=== PATIENT | male | born 1970 | race Caucasian/White ===

== ENCOUNTER 2018-12-12 21:49 | Emergency (ER) | payer MEDICAID ==
[~2018-12-12] VITALS: Ht 170.2 cm; Wt 68.2 kg
[2018-12-12 22:00] VITALS: Ht 170.2 cm; Wt 68.2 kg
[2018-12-13] MEDS ORDERED: KEFLEX500 MG PO (00:32)
[2018-12-13] MEDS ORDERED: VIBRAMYCIN 100100 MG PO (00:32)
[2018-12-13 00:53] VITALS: BP 105/77
[2018-12-19 14:12] LABS: AEROBE ID Final report (())
== END 2018-12-13 00:53 | disposition home or self-care (01) ==
LOC: D.ER 21:49
PROVIDERS: Emergency Medicine
DX: L03.113 Cellulitis of right upper limb (principal)